=== PATIENT | male | born 2005 | race Two or more races ===

== ENCOUNTER 2024-06-29 21:29 | Emergency (ER) | payer MEDICAID, SELFPAY ==
[2024-06-29 21:30] VITALS: BMI 27.0
[2024-06-29 21:42] VITALS: BP 158/91; PULSE 117; RESP 18; TEMP 37.3; O2SAT 96
--- NOTE | 2024-06-29 21:58 | XR_ITS ---
Examination: PA lateral chest 2 views Technique: Upright PA lateral chest 2 views Exam date and time: June 29, 2024 at 10 0 6:00 PM Indications: Shortness of breath coughing beginning one week ago. Findings: Normal heart size No lobar pneumonia The osseous structures are intact Impression: No lobar pneumonia identified
--- NOTE | 2024-06-29 21:59 | EDRME_ITS ---
Rapid Medical Screening Exam [facility] Arrival date/time: 06/29/24 21:29 18-year-old male past medical history of seasonal allergies presents emergency department complaining of shortness of breath and cough that is been ongoing for 1 week after returning from a trip to [place]. Chief Complaint: Shortness of Breath/Dyspnea Time Seen by Provider: 06/29/24 21:55 Vital signs: Vital Signs Temperature 99.1 F 06/29/24 21:42 Pulse Rate 117 H 06/29/24 21:42 Respiratory Rate 18 06/29/24 21:42 Blood Pressure 158/91 H 06/29/24 21:42 Pulse Oximetry (%) 96 06/29/24 21:42 Oxygen Delivery Method Room Air 06/29/24 21:42 Vital signs reviewed by provider: Yes
[2024-06-29 22:14] VITALS: TEMP 37.3
[2024-06-29] MEDS: ACETAMINOPHEN 500 MG TABLET 1000 MG PO (22:14)
[2024-06-29] MEDS: predniSONE 20 MG TABLET 60 MG PO (22:15)
[2024-06-29 22:17] VITALS: PULSE 109; PULSE 117; RESP 20; O2SAT 99
[2024-06-29] MEDS: IPRATROPIUM RT 0.5 MG/ 2.5 ML NEBU INH ×2 (22:17→23:48)
[2024-06-29] MEDS: ALBUTEROL RT 2.5 MG/0.5 ML NEBU 5 MG INH ×2 (22:17→23:48)
[2024-06-29] MEDS: SODIUM CHLORIDE RT SOL 0.9% 3 ML NEBU INH ×2 (22:17→23:48)
--- NOTE | 2024-06-29 23:21 | PD.EDURI ---
Upper Respiratory Inf. RME/HPI General Chief Complaint: Shortness of Breath/Dyspnea Stated Complaint: SOB, CP, back pain Time Seen by Provider: 06/29/24 21:55 Source: patient Arrival date/time: 06/29/24 21:29 18-year-old male past medical history of seasonal allergies presents emergency department complaining of shortness of breath and cough that is been ongoing for 1 week after returning from a trip to [facility]. Patient denies any fever, chills, vomiting, sore throat, or any other associated symptom. Mode of arrival: ambulatory Limitations: no limitations RME / HPI RME / HPI Narrative: 06/29/24 21:29 18-year-old male past medical history of seasonal allergies presents emergency department complaining of shortness of breath and cough that is been ongoing for 1 week after returning from a trip to [facility]. Related Data Previous Rx's ?Medication ?Instructions ?Recorded albuterol sulfate 90 mcg/actuation 2 puff inhalation Q6H PRN 06/29/24 aerosol inhaler (Ventolin HFA) shortness of breath or wheezing #6.7 grams prednisone 20 mg tablet 20 mg PO BID 3 days #6 tabs 06/29/24 Allergies Allergy/AdvReac Type Severity Reaction Status Date / Time No Known Allergies Allergy Verified 11/02/17 20:09 Review of Systems Review of Systems Systems Reviewed: All systems reviewed, normal except as documented Constitutional Constitutional: Reports system reviewed and no additional complaints, except as documented, Denies body ache(s), Denies chills and Denies fever(s) Eyes Eyes: Reports system reviewed and no additional complaints, except as documented and Denies change in vision ENT Ears, Nose, Mouth, and Throat: Reports system reviewed and no additional complaints, except as documented, Denies disequilibrium, Denies dizziness, Reports nasal congestion, Denies sore throat and Denies vertigo Cardiovascular Cardiovascular: Reports system reviewed and no additional complaints, except as documented, Denies chest pain and Reports dyspnea Respiratory Respiratory: Reports system reviewed and no additional complaints, except as documented, Denies chest congestion, Reports cough and Reports dyspnea Gastrointestinal Gastrointestinal: Reports system reviewed and no additional complaints, except as documented, Denies abdominal pain, Denies nausea and Denies vomiting Musculoskeletal Musculoskeletal: Reports system reviewed and no additional complaints, except as documented, Denies abnormal gait and Denies arthralgias Integumentary/Breasts Skin/Breast: Reports system reviewed and no additional complaints, except as documented, Denies erythema, Denies rash and Denies wounds Neurologic Neurologic: Reports system reviewed and no additional complaints, except as documented, Denies abnormal gait, Denies disequilibrium, Denies dizziness and Denies vertigo Past Medical History Social History SMOKING STATUS: Never smoker ED Exam General Limitations: Present no limitations General appearance: Present alert and in no apparent distress Head Head exam: Present atraumatic Eye Eye exam: Present normal appearance, PERRL and EOMI ENT ENT exam: Present normal exam, normal oropharynx and mucous membranes moist Expanded ENT Exam Nasal speculum exam: Bilateral: other (Nasal congestion) Neck Neck exam: Present normal inspection, full ROM and trachea midline Chest Chest inspection: Present normal inspection and symmetric chest wall rise Respiratory Respiratory exam: Present normal lung sounds bilaterally and wheezes Expanded Respiratory Exam Location: Left: wheezes, Right: wheezes, Upper: wheezes and Lower: wheezes Cardiovascular Cardiovascular exam: Present regular rate, normal rhythm and normal heart sounds Abdominal Exam Abdominal exam: Present soft and normal bowel sounds Extremities Exam Extremities exam: Present normal inspection and full ROM Back Exam Back exam: Present normal inspection and full ROM Neurological Exam Neurological exam: Present alert, oriented X3 and CN II-XII intact Psychiatric Psychiatric exam: Present normal affect and normal mood Skin Skin exam: Present warm, dry, intact and normal color Course Quality Measures none Orders Category Date Time Status Bedside COVID-19 Antigen Test NOW Care 06/29/24 21:58 Active Bedside Influenza A&B Antigen Test NOW Care 06/29/24 21:58 Completed XR chest 2V Stat Exams 06/29/24 21:58 Completed ALBUTEROL RT 0.5ml [Proventil Rt 0.5ml] Med 06/29/24 21:58 Discontinued 5 mg INH X1 ONE ALBUTEROL RT 0.5ml [Proventil Rt 0.5ml] Med 06/29/24 23:20 Discontinued 5 mg INH X1 ONE Acetaminophen Tab [Tylenol ES Tab] Med 06/29/24 22:00 Discontinued 1,000 mg PO X1 ONE Ipratropium Torreon Rt Priyanka [Atrovent Rt Priyanka] Med 06/29/24 21:58 Discontinued 0.5 mg INH X1 ONE Ipratropium Torreon Rt Priyanka [Atrovent Rt Priyanka] Med 06/29/24 23:20 Discontinued 0.5 mg INH X1 ONE Sodium Chloride Rt Priyanka 0.9% [NS Rt Priyanka 0.9%] Med 06/29/24 21:58 Active 3 ml INH PRN PRN Sodium Chloride Rt Priyanka 0.9% [NS Rt Priyanka 0.9%] Med 06/29/24 23:20 Active 3 ml INH PRN PRN predniSONE Med 06/29/24 21:58 Discontinued 60 mg PO X1 ONE Vital Signs Vital signs: Vital Signs Temperature 99.1 F 06/29/24 21:42 Pulse Rate 117 H 06/29/24 21:42 Respiratory Rate 18 06/29/24 21:42 Blood Pressure 158/91 H 06/29/24 21:42 Pulse Oximetry (%) 96 06/29/24 21:42 Oxygen Delivery Method Room Air 06/29/24 21:42 96% room air within normal limits Upper Respiratory Infection MDM Narrative MDM Narrative:: 18-year-old male past medical history of seasonal allergies presents emergency department complaining of shortness of breath and cough that is been ongoing for 1 week after returning from a trip to [facility]. Patient denies any fever, chills, vomiting, sore throat, or any other associated symptom. Inspiratory wheeze throughout upper and lower lobes bilaterally that significantly improved after breathing treatment and steroids. After treatment patient appears nontoxic and is hemodynamically stable. Patient speaking in full sentences. Chest x-ray was unremarkable for any pneumonic infiltrates. Patient stable for discharge will be given short-term steroids and albuterol inhaler as needed for any shortness of breath or wheezing and advised to have close follow-up with primary care provider in 2 to 3 days. Strict return instructions were given if any increased shortness of breath, wheezing, difficulty breathing, or any worsening symptoms there is advised to return immediately to emergency department. Patient data External records reviewed:: [facility] previous records Clinical information provided by:: patient Social determinants that could affect healthcare access:: none Patient has the following chronic illnesses:: None How is presenting disease/condition affected by chronic disease/condition?: no chronic disease Evaluation data The following diagnostics were reviewed and interpreted by me:: lab results and radiology exam(s) Lab and/or radiology exams considered but not ordered:: Ordered Interpretation Summary: Interpreted by me Medications / Prescriptions Medications or Prescriptions considered but not ordered:: Ordered Medication administrations:: Medication Administration History Sodium Chloride (Sodium Chloride Rt Priyanka 0.9% 3 Ml Nebu) 3 ml INH PRN PRN PRN Reason: SOLN Stop: 07/29/24 21:57 Last Admin: 06/29/24 23:48 Dose: 3 ml Documented By: Admin: 06/29/24 22:17 Dose: 3 ml Documented By: NE Sodium Chloride (Sodium Chloride Rt Priyanka 0.9% 3 Ml Nebu) 3 ml INH PRN PRN PRN Reason: SOLN Stop: 07/29/24 23:19 Discontinued Medications Acetaminophen (Acetaminophen 500 Mg Tablet) 1,000 mg PO X1 ONE Stop: 06/29/24 22:01 Last Admin: 06/29/24 22:14 Dose: 1,000 mg Documented By: Albuterol (Albuterol Rt 2.5 Mg/0.5 Ml Nebu) 5 mg INH X1 ONE Stop: 06/29/24 21:59 Last Admin: 06/29/24 22:17 Dose: 5 mg Documented By: NE Albuterol (Albuterol Rt 2.5 Mg/0.5 Ml Nebu) 5 mg INH X1 ONE Stop: 06/29/24 23:21 Last Admin: 06/29/24 23:48 Dose: 5 mg Documented By: NE Ipratropium Torreon (Ipratropium Rt 0.5 Mg/ 2.5 Ml Nebu) 0.5 mg INH X1 ONE Stop: 06/29/24 21:59 Last Admin: 06/29/24 22:17 Dose: 0.5 mg Documented By: NE Ipratropium Torreon (Ipratropium Rt 0.5 Mg/ 2.5 Ml Nebu) 0.5 mg INH X1 ONE Stop: 06/29/24 23:21 Last Admin: 06/29/24 23:48 Dose: 0.5 mg Documented By: NE Prednisone (Prednisone 20 Mg Tablet) 60 mg PO X1 ONE Stop: 06/29/24 21:59 Last Admin: 06/29/24 22:15 Dose: 60 mg Documented By: Given Consultations Consultation(s) initiated? (list below): No Diagnosis Upper Respiratory Differential Diagnosis: upper respiratory infection, otitis media, sinusitis, viral infection, bronchitis, influenza and pharyngitis Most likely diagnosis given after review of the tests above:: URI with cough and congestion Admission Indicated Admission indicated?: not indicated Admission Request Was there a request for admission?: No Disposition Plan Disposition Plan: Discharge Discharge Attestation Discharge Attestation: The patient and all family members were given an opportunity to ask questions and understood the discharge instructions. Discharge instructions specifically effects, indications for sooner follow up or return to the emergency department, and the expected course of current diagnosis. Patient condition: Stable Discharge Plan Plan Patient Disposition: HOME (Self Care) Disposition Comment: Stable Prescriptions/Referrals Prescriptions/Med Rec: New albuterol sulfate [Ventolin HFA] 90 mcg/actuation HFA aerosol inhaler 2 puff inhalation Q6H PRN (Reason: shortness of breath or wheezing) Qty: 6.7 0RF prednisone 20 mg tablet 20 mg PO BID 3 Days Qty: 6 0RF Taper: Prednisone Taper 20 mg TWICE A DAY for 3 Days and 0 Hour Problem List Clinical Impression: URI with cough and congestion Patient/Caregiver Discharge Instructions Education Materials: Albuterol Inhaler 90 mcg/inh, ED URI, Viral W/ Wheezing (Adult), ED URI, Viral, No Abx (Adult) Additional Instructions: Drink plenty of fluids and stay hydrated. Continue taking your seasonal allergy medication and try to avoid allergens. Use albuterol inhaler for any shortness of breath or wheezing as prescribed. Take steroids as prescribed. Close follow-up with primary care provider in 2 to 3 days. Return immediately to emergency department for any increased shortness of breath, difficulty breathing, worsening symptoms, or as needed. Print Language: Burkinan Stand Alone Forms: Mami Award Info., Patient Portal Info Letter SANJANA/DAMASO Supervising Physician SANJANA/DAMASO Supervising Physician: Dr. Lindquist
[2024-06-29 23:48] VITALS: PULSE 121; PULSE 86; RESP 20; O2SAT 98
== END 2024-06-30 00:23 | disposition home or self-care (01) ==
LOC: SERX 23:50
PROVIDERS: Emergency Provider Emergency Medicine
DX: J06.9 Acute upper respiratory infection, unspecified (principal)
CPT/HCPCS: 71046; 87400; 87811; 94640; 99284; J7512; A9270